=== PATIENT | male | born 1985 | race American Indian/Alaskan Native ===

== ENCOUNTER 2016-08-19 20:01 | Emergency (ER) | payer SELFPAY ==
[2016-08-19 22:44] VITALS: BP 154/86
[2016-08-20] MEDS ORDERED: FLEXERIL PO ONE (00:32)
[2016-08-20] MEDS ORDERED: MOTRIN PO ONE (00:33)
--- NOTE | 2016-08-20 00:36 | Emergency Department Report ---
HPI - General Chief Complaint: Extremity Problem,Nontraumatic Time Seen by Provider: 08/20/16 00:01 - HPI HPI: 31-year-old male presents to ED complaining of left anterior knee pain for the past month. Patient states about a month ago while he was at work he hit his knee on a bathroom stall. Patient states ever since then he's been having intermittent pain after work. Patient states pain is only worsened after he is done with the. [place] Patient describes the pain as aching, 5 out of 10 intensity type pain, nonradiating. He denies any other symptoms ED Past Medical Hx - Past Medical History Previous Medical History?: No - Surgical History Past Surgical History?: No - Social History Smoking Status: Never Smoker Substance Use Type: None - Medications Home Medications: Home Medications Medication Instructions Recorded Confirmed Last Taken Type Erythromycin [Erythromycin Ophth 10 applic OP BID #1 tube 08/15/14 Unknown Rx Oint] Cyclobenzaprine [Flexeril 10 MG 10 mg PO QHS #24 tablet 08/20/16 Unknown Rx TAB] Ibuprofen [Motrin 800 MG tab] 800 mg PO Q8H #40 tablet 08/20/16 Unknown Rx ED Review of Systems ROS: Stated complaint: LEFT KNEE PAIN/KNOT ON HEAD Other details as noted in HPI Constitutional: denies: chills, fever Eyes: denies: eye pain, eye discharge, vision change ENT: denies: ear pain, throat pain Respiratory: denies: cough, shortness of breath, wheezing Cardiovascular: denies: chest pain, palpitations Endocrine: no symptoms reported Gastrointestinal: denies: abdominal pain, nausea, diarrhea Genitourinary: denies: urgency, dysuria Musculoskeletal: arthralgia. denies: back pain, joint swelling Skin: denies: rash, lesions Neurological: denies: headache, weakness, numbness, paresthesias, confusion Psychiatric: denies: anxiety, depression Hematological/Lymphatic: denies: easy bleeding, easy bruising Physical Exam - Physical Exam Vital Signs: Vital Signs 08/19/16 22:37 Temperature 98.8 F Pulse Rate 78 Respiratory 20 Rate Blood Pressure 154/86 O2 Sat by Pulse 99 Oximetry Physical Exam: GENERAL: Alert and oriented x3, no apparent distress, Normal Gait, atraumatic. HEAD: Head is normocephalic and a-traumatic. NECK: Supple. Non edematous, No carotid bruits. No lymphadenopathy or thyromegaly. No C-spine tenderness LUNGS: Symetrical with respiration, No wheezing, no rales or crackles, CTAB. HEART: S1, S2 present, regular rate and rhythm without murmur, no rubs, no gallops. Non tender to palpation EXTREMITIES/MUSCULOSKELETAL: No cyanosis, clubbing, rash, lesions or edema. Full ROM bilaterally. UE/LE Pulses 2+ bilaterally. LE and UE 5+ strength bilaterally. Knee joint is intact bilaterally. Mildly tenderness to palpation of the left anterior knee. Patient able to flex and extend knee without any pain. No ecchymosis, no swelling, no erythema of the knee. NEUROLOGIC: The patient is cooperative with no focal neurologic deficits. Cranial nerves II through XII are grossly intact. Normal speech. SKIN: Warm and dry, No lesions, No ulceration or induration present. ED Course Vital Signs 08/19/16 22:37 Temperature 98.8 F Pulse Rate 78 Respiratory 20 Rate Blood Pressure 154/86 O2 Sat by Pulse 99 Oximetry ED Medical Decision Making - Medical Decision Making 31-year-old male presents to ED with arthralgia of the knee ED course: Patient received Motrin and Flexeril in ED. Vital signs are normal patient is in no acute distress Discussed with patient follow-up with primary care physician. Discussed the patient and take medications as prescribed. Patient has no neurological deficit. Patient is alert and oriented 3 and understands all instructions given. Discussed drowsiness effect of Flexeril makes her drowsy and not to operate machinery while taking flexeril Critical care attestation.: If time is entered above; I have spent that time in minutes in the direct care of this critically ill patient, excluding procedure time. ED Disposition Clinical Impression: Arthralgia of knee, left Disposition: DC-01 TO HOME OR SELFCARE Is pt being admited?: No Does the pt Need Aspirin: No Condition: Stable Instructions: Arthralgia (ED) Prescriptions: Cyclobenzaprine [Flexeril 10 MG TAB] 10 mg PO QHS #24 tablet Ibuprofen [Motrin 800 MG tab] 800 mg PO Q8H #40 tablet Referrals: PRIMARY CARE, [Primary Care Provider] - 3-5 Days [facility] [Outside] - 3-5 Days [facility] [Outside] - 3-5 Days Forms: Accompanied Note, Work/School Release Form(ED) Time of Disposition: 00:41
== END 2016-08-20 01:01 | disposition home or self-care (01) ==
LOC: ED 20:01
DX: M25.562 Pain in left knee (principal)
CPT/HCPCS: 99282

== ENCOUNTER 2016-12-01 15:51 | Emergency (ER) | payer SELFPAY ==
[2016-12-01 17:49] LABS: Basophils % (Auto) 0.4 % (0.0-1.8); Eosinophils % (Auto) 1.6 % (0.0-4.3); Hematocrit 40.1 % (35.5-45.6); Hemoglobin 13.3 gm/dl (11.8-15.2); Mean Corpuscular HGB Conc 33 % (32-34); Mean Corpuscular Hemoglobin 26 pg (28-32); Mean Corpuscular Volume 79 fl (84-94); Platelet Count 265 K/mm3 (140-440); Red Blood Count 5.08 M/mm3 (3.65-5.03); Red Cell Distribution Width 16.1 % (13.2-15.2); White Blood Count 6.6 K/mm3 (4.5-11.0)
[2016-12-01 18:10] LABS: Alanine Aminotransferase 15 units/L (7-56); Albumin/Globulin Ratio 1.1 %; Alkaline Phosphatase 56 units/L (35-129); Anion Gap 14 mmol/L; BUN/Creatinine Ratio 15; Blood Urea Nitrogen 12 mg/dL (9-20); Calcium 9.2 mg/dL (8.4-10.2); Carbon Dioxide 29 mmol/L (22-30); Chloride 100.7 mmol/L (98-107); Glucose 111 mg/dL (75-100); Sodium 140 mmol/L (137-145); Total Protein 7.8 g/dL (6.3-8.2)
--- NOTE | 2016-12-01 20:30 | XRay Report ---
FINAL REPORT EXAM: XR CHEST ROUTINE 2V HISTORY: rule out PE TECHNIQUE: 2 views of the chest. PRIORS: None. FINDINGS: The cardiomediastinal silhouette appears normal. The lungs are clear. The bones and soft tissues are unremarkable. IMPRESSION: No evidence of acute cardiopulmonary disease
[2016-12-01 20:35] VITALS: BP 149/95
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
== END 2016-12-01 22:03 | disposition home or self-care (01) ==
LOC: ED 15:51
DX: I10 Essential (primary) hypertension (principal); Z91.012 Allergy to eggs; Z91.018 Allergy to other foods
CPT/HCPCS: 36415; 71020; 80053; 83880; 84484; 85025; 85379; 93005; 93010; 99284

== ENCOUNTER 2017-08-14 11:35 | Emergency (ER) | payer OTHER ==
[2017-08-14 12:03] VITALS: BP 158/89
--- NOTE | 2017-08-14 13:39 | Emergency Department Report ---
ED Lower Extremity HPI - General Chief Complaint: Extremity Injury, Lower Stated Complaint: KNEE AND LEG PAIN Time Seen by Provider: 08/14/17 13:26 Source: patient Mode of arrival: Ambulatory Limitations: No Limitations - History of Present Illness Initial Comments: Mr. Lyon is a 32-year-old male with a history of severe obesity presents with 2 weeks of bilateral knee pain. Worse with ambulation. Worse with weightbearing. He did not attempt any [id number] medication. He denies chest pain. No shortness of breath. Denies direct trauma. He has had remote knee injury due to sports high school football He does martial arts. He currently weighs 400 pounds. In high school weight approximately 200 pounds. Complaint: knee injury -: Gradual, week(s) (1) Injury: Knee: Right, Left Severity: mild Worsens With: weight bearing, movement - Related Data Previous Rx's Medication Instructions Recorded Last Taken Type Erythromycin [Erythromycin Ophth 10 applic OP BID #1 tube 08/15/14 Unknown Rx Oint] Cyclobenzaprine [Flexeril 10 MG 10 mg PO QHS #24 tablet 08/20/16 Unknown Rx TAB] Ibuprofen [Motrin 800 MG tab] 800 mg PO Q8H #40 tablet 08/20/16 Unknown Rx Amlodipine Besylate [Norvasc] 5 mg PO DAILY #30 tablet 12/01/16 Unknown Rx Naproxen 500 mg PO BID 10 Days #20 tablet 08/14/17 Unknown Rx Allergies Allergy/AdvReac Type Severity Reaction Status Date / Time chocolate Allergy Hives Uncoded 08/19/16 22:36 eggs Allergy Hives Uncoded 08/19/16 22:36 strawberries Allergy Angioedema Uncoded 08/19/16 22:36 ED Review of Systems ROS: Stated complaint: KNEE AND LEG PAIN Other details as noted in HPI Respiratory: denies: cough Cardiovascular: denies: chest pain Gastrointestinal: denies: abdominal pain Neurological: denies: numbness, paresthesias ED Past Medical Hx - Past Medical History Previous Medical History?: Yes Additional medical history: lump @ back of head - Surgical History Past Surgical History?: No - Social History Smoking Status: Never Smoker Substance Use Type: None - Medications Home Medications: Home Medications Medication Instructions Recorded Confirmed Last Taken Type Erythromycin [Erythromycin Ophth 10 applic OP BID #1 tube 08/15/14 Unknown Rx Oint] Cyclobenzaprine [Flexeril 10 MG 10 mg PO QHS #24 tablet 08/20/16 Unknown Rx TAB] Ibuprofen [Motrin 800 MG tab] 800 mg PO Q8H #40 tablet 08/20/16 Unknown Rx Amlodipine Besylate [Norvasc] 5 mg PO DAILY #30 tablet 12/01/16 Unknown Rx Naproxen 500 mg PO BID 10 Days #20 tablet 08/14/17 Unknown Rx ED Physical Exam - General Limitations: No Limitations General appearance: alert, in no apparent distress - Head Head exam: Present: atraumatic, normocephalic - ENT ENT exam: Present: mucous membranes moist - Neck Neck exam: Present: normal inspection - Respiratory Respiratory exam: Absent: respiratory distress - Cardiovascular Cardiovascular Exam: Present: regular rate, normal rhythm, normal heart sounds. Absent: bradycardia, tachycardia, systolic murmur, diastolic murmur - Extremities Exam Extremities exam: Present: normal inspection, full ROM. Absent: tenderness, pedal edema - Expanded Lower Extremity Exam Left Knee exam: Present: normal inspection, full ROM, full knee extension. Absent: tenderness, swelling, abrasion, laceration, ecchymosis, deformity, crepidus, dislocation, erythema, effusion Right Knee exam: Present: normal inspection, full ROM, full knee extension. Absent: tenderness, swelling, abrasion, laceration, ecchymosis, deformity, crepidus, dislocation, erythema, effusion - Back Exam Back exam: Present: normal inspection, full ROM. Absent: tenderness - Neurological Exam Neurological exam: Present: alert, oriented X3 - Psychiatric Psychiatric exam: Present: normal affect, normal mood - Skin Skin exam: Present: warm, dry, intact, normal color ED Course Vital Signs 08/14/17 11:59 Temperature 98.2 F Pulse Rate 87 Respiratory 20 Rate Blood Pressure 158/89 O2 Sat by Pulse 98 Oximetry ED Lower Extremity MDM - Medical Decision Making MR. Cronin has bilateral knee pain for 2 weeks. Suspect joint dz due to severe obesity. Rx: aj referred to orthopedic surgeon Critical care attestation.: If time is entered above; I have spent that time in minutes in the direct care of this critically ill patient, excluding procedure time. ED Disposition Clinical Impression: Bilateral knee pain, Severe obesity (BMI >= 40) Disposition: DC-01 TO HOME OR SELFCARE Is pt being admited?: No Does the pt Need Aspirin: No Condition: Stable Instructions: Arthralgia (ED), Knee Pain (ED) Prescriptions: Naproxen 500 mg PO BID 10 Days #20 tablet Referrals: DANAY JUAREZ MD [Staff Physician] - 3-5 Days Forms: Work/School Release Form(ED) Time of Disposition: 13:39
== END 2017-08-14 13:58 | disposition home or self-care (01) ==
LOC: ED 11:35
DX: M25.561 Pain in right knee (principal); M25.562 Pain in left knee; E66.01 Morbid (severe) obesity due to excess calories; Z68.41 Body mass index [BMI] 40.0-44.9, adult; Z91.012 Allergy to eggs; Z91.018 Allergy to other foods
CPT/HCPCS: 99282

== ENCOUNTER 2019-02-17 09:12 | Emergency (ER) | payer SELFPAY ==
[2019-02-17 09:30] VITALS: BP 158/92
[2019-02-17] MEDS ORDERED: LIDOCAINE VISCOUS 2% 15 ML ORAL LIQD PO ONE (11:34)
[2019-02-17] MEDS ORDERED: FAMOTIDINE 20 MG TAB PO ONE (11:34)
[2019-02-17] MEDS ORDERED: ALUM-MAG HYDROXIDE-SIMETHICONE 200-200-20MG/5ML ORAL LIQD 30 ML PO ONE (11:34)
--- NOTE | 2019-02-17 11:35 | Emergency Department Report ---
ED Abdominal Pain HPI - General Chief Complaint: Extremity Injury, Lower Stated Complaint: RT ANKLE PAIN/HEARTBURN Time Seen by Provider: 02/17/19 11:29 Source: patient Mode of arrival: Ambulatory Limitations: No Limitations - History of Present Illness Initial Comments: 34 yo obese AA male who comes to ER with heart burn- a/c. His tums is not working as it usually does. no cp. no sob. denies taking prescribed meds. No sign. medical or family history. - Related Data Previous Rx's Medication Instructions Recorded Last Taken Type Erythromycin [Erythromycin Ophth 10 applic OP BID #1 tube 08/15/14 Unknown Rx Oint] Cyclobenzaprine [Flexeril 10 MG 10 mg PO QHS #24 tablet 08/20/16 Unknown Rx TAB] Ibuprofen [Motrin 800 MG tab] 800 mg PO Q8H #40 tablet 08/20/16 Unknown Rx Amlodipine Besylate [Norvasc] 5 mg PO DAILY #30 tablet 12/01/16 Unknown Rx Naproxen 500 mg PO BID 10 Days #20 tablet 08/14/17 Unknown Rx Naproxen [Naprosyn] 500 mg PO TID PRN #12 tablet 01/18/18 Unknown Rx methOCARBAMOL [Robaxin TAB] 500 mg PO BID PRN #10 tab 01/18/18 Unknown Rx Pantoprazole [Protonix] 40 mg PO QDAY #14 tablet 02/17/19 Unknown Rx Allergies Allergy/AdvReac Type Severity Reaction Status Date / Time chocolate Allergy Hives Uncoded 08/19/16 22:36 eggs Allergy Hives Uncoded 08/19/16 22:36 strawberries Allergy Angioedema Uncoded 08/19/16 22:36 ED Review of Systems ROS: Stated complaint: RT ANKLE PAIN/HEARTBURN Other details as noted in HPI Comment: All other systems reviewed and negative ED Past Medical Hx - Past Medical History Previous Medical History?: Yes Additional medical history: lump @ back of head- obese - Surgical History Past Surgical History?: Yes Additional Surgical History: 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, 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 - Family History Family history: no significant - Social History Smoking Status: Never Smoker Substance Use Type: None - Medications Home Medications: Home Medications Medication Instructions Recorded Confirmed Last Taken Type Erythromycin [Erythromycin Ophth 10 applic OP BID #1 tube 08/15/14 Unknown Rx Oint] Cyclobenzaprine [Flexeril 10 MG 10 mg PO QHS #24 tablet 08/20/16 Unknown Rx TAB] Ibuprofen [Motrin 800 MG tab] 800 mg PO Q8H #40 tablet 08/20/16 Unknown Rx Amlodipine Besylate [Norvasc] 5 mg PO DAILY #30 tablet 12/01/16 Unknown Rx Naproxen 500 mg PO BID 10 Days #20 tablet 08/14/17 Unknown Rx Naproxen [Naprosyn] 500 mg PO TID PRN #12 tablet 01/18/18 Unknown Rx methOCARBAMOL [Robaxin TAB] 500 mg PO BID PRN #10 tab 01/18/18 Unknown Rx Pantoprazole [Protonix] 40 mg PO QDAY #14 tablet 02/17/19 Unknown Rx ED Physical Exam - General Limitations: No Limitations General appearance: alert, in no apparent distress - Head Head exam: Present: atraumatic, normocephalic - Eye Eye exam: Present: normal appearance - ENT ENT exam: Present: mucous membranes moist - Neck Neck exam: Present: normal inspection - Respiratory Respiratory exam: Present: normal lung sounds bilaterally. Absent: respiratory distress - Cardiovascular Cardiovascular Exam: Present: regular rate, normal rhythm. Absent: systolic murmur, diastolic murmur, rubs, gallop - GI/Abdominal GI/Abdominal exam: Present: soft, normal bowel sounds - Rectal Rectal exam: Present: deferred - Extremities Exam Extremities exam: Present: normal inspection - Back Exam Back exam: Present: normal inspection - Neurological Exam Neurological exam: Present: alert, oriented X3 - Psychiatric Psychiatric exam: Present: normal affect, normal mood - Skin Skin exam: Present: warm, dry, intact, normal color. Absent: rash ED Course Vital Signs 02/17/19 09:27 Temperature 98.8 F Pulse Rate 92 H Respiratory 16 Rate Blood Pressure 158/92 O2 Sat by Pulse 95 Oximetry ED Medical Decision Making - Medical Decision Making pt states he moved wrong at work yesterday and his r ankle hurts refuses xray pain was burning from epigastric area to throat. no cp no sob no abd or back pain bp wnl abd exam benign no n/v/d/fever or chills GI cocktail given with relief of pain dc home with RX for GERD and pt instructions. He will see GI. Vital Signs 02/17/19 09:27 Temperature 98.8 F Pulse Rate 92 H Respiratory 16 Rate Blood Pressure 158/92 O2 Sat by Pulse 95 Oximetry - Differential Diagnosis gerd/ ankle pain Critical care attestation.: If time is entered above; I have spent that time in minutes in the direct care of this critically ill patient, excluding procedure time. ED Disposition Clinical Impression: GERD (gastroesophageal reflux disease), Ankle pain Disposition: DC-01 TO HOME OR SELFCARE Is pt being admited?: No Does the pt Need Aspirin: No Condition: Stable Instructions: Gastroesophageal Reflux Disease (ED) Additional Instructions: bland diet med as ordered follow up with GI MD if persists referral below Prescriptions: Pantoprazole [Protonix] 40 mg PO QDAY #14 tablet Referrals: MICHELLE FONTAINE MD [Staff Physician] - 3-5 Days SHAWN DENISE MD [Staff Physician] - 3-5 Days Time of Disposition: 12:08
== END 2019-02-17 12:34 | disposition home or self-care (01) ==
LOC: ED 09:12
DX: K21.9 Gastro-esophageal reflux disease without esophagitis (principal); M25.571 Pain in right ankle and joints of right foot; Z79.899 Other long term (current) drug therapy; Z98.890 Other specified postprocedural states; Z91.018 Allergy to other foods; Z91.012 Allergy to eggs

== ENCOUNTER 2021-03-29 09:33 | Emergency (ER) | payer SELFPAY ==
[2021-03-29] MEDS ORDERED: IBUPROFEN 800 MG TAB PO ONE (10:44)
[2021-03-29] MEDS ORDERED: dexAMETHasone 4 MG/ML VIAL IM ONE (10:44)
[2021-03-29] MEDS ORDERED: CYCLOBENZAPRINE 10 MG TAB PO ONE (10:44)
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
[2021-03-29 11:28] VITALS: BP 150/96
== END 2021-03-29 11:41 | disposition home or self-care (01) ==
LOC: ED 09:33
DX: M54.50 Low back pain, unspecified (principal)
CPT/HCPCS: 99282; J1100

== ENCOUNTER 2021-09-28 17:07 | Emergency (ER) | payer OTHER ==
[2021-09-28 17:51] VITALS: BP 164/100
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
== END 2021-09-28 20:45 | disposition home or self-care (01) ==
LOC: ED 17:07
DX: S39.012A Strain of muscle, fascia and tendon of lower back, initial encounter (principal); Z91.012 Allergy to eggs; Z91.02 Food additives allergy status; Z91.011 Allergy to milk products; V89.2XXA Person injured in unspecified motor-vehicle accident, traffic, initial encounter; Y93.89 Activity, other specified; Y92.89 Other specified places as the place of occurrence of the external cause; Y99.8 Other external cause status
CPT/HCPCS: 99282